=== PATIENT | female | born 1940 | race Caucasian/White ===

== ENCOUNTER → 2016-09-12 | Outpatient (CLI) | payer MEDICARE, OTHER ==
[~2016-09-12] MED LIST: ALPR-140 PO; ASPI81CH43 PO; BIOT5TAB3 PO; CHOL20007 PO; CYAN100L PO; HCTZ25T PO; MAGN400T21 PO; METO25TA5 PO; MULT1TAB95 PO; PANT40TA2 PO; POTA20TA53 PO
[2016-09-12 11:43] LABS: BUN/Creatinine Ratio 19.8; Potassium 3.6 mmol/L (3.5-5.1)
== END | disposition home or self-care (01) ==
LOC: LAB 10:43
PROVIDERS: ATTEND Internal Medicine Cardiovascular Disease
DX: R07.89 Other chest pain (principal)
CPT/HCPCS: 36415; 80048

== ENCOUNTER → 2018-03-01 | Outpatient (CLI) | payer MEDICARE ==
[2018-03-01 09:49] LABS: Basophils # (auto) 0 uL; Basophils % (auto) 0.4 % (0.0-2.0); Eosinophils # (auto) 0.4 uL; Eosinophils % (auto) 5.2 % (0.0-7.0); Hematocrit 48.5 % (36.0-46.0); Hemoglobin 15.6 g/dL (12.2-16.2); Lymphocytes # (auto) 1.8 uL; Lymphocytes % (auto) 21.4 % (10.0-50.0); Mean Corpuscular Hemoglobin 28.9 pg (28.0-32.0); Mean Corpuscular Hgb Conc. 32.1 g/dL (32.0-36.0); Monocytes # (auto) 0.8 uL; Monocytes % (auto) 9.3 % (0.0-12.0); Neutrophils # (auto) 5.4 uL; Neutrophils % (auto) 63.7 % (37.0-80.0); Nucleated Red Blood Cells % 0.1 %; Platelet Count (auto) 289 10^3/uL (140-450); Red Blood Cells 5.39 10^6/uL (4.0-5.20); Red Cell Distribution Width 13.7 % (11.8-14.3); White Blood Cell 8.5 10^3/uL (4.4-10.8)
[2018-03-01 10:04] LABS: Urine Bacteria NONE SEEN /hpf (None Seen); Urine Blood Negative /uL (Negative); Urine Mucus FEW (None Seen); Urine Specific Gravity 1.027 (1.001-1.035); Urine WBC 12 /hpf (0 - 5)
[2018-03-01 10:12] LABS: Albumin 3.3 g/dL (3.4-5.0); Calcium 9.9 mg/dL (8.5-10.1); Potassium 3.6 mmol/L (3.5-5.1)
[2018-03-01 10:20] LABS: BUN/Creatinine Ratio 22.7; Bilirubin, Total 0.4 mg/dL (0.2-1.0); Total Protein 7.3 g/dL (6.4-8.2)
== END | disposition home or self-care (01) ==
LOC: LAB 09:26
PROVIDERS: ATTEND Family Medicine
DX: I10 Essential (primary) hypertension (principal); J44.9 Chronic obstructive pulmonary disease, unspecified; E55.9 Vitamin D deficiency, unspecified; M54.5 Low back pain; E66.1 Drug-induced obesity; R73.09 Other abnormal glucose; Z79.1 Long term (current) use of non-steroidal anti-inflammatories (NSAID)
CPT/HCPCS: 80053; 80061; 81001; 82607; 83036; 84443

== ENCOUNTER 2018-08-28 00:16 | Inpatient (IN) | payer MEDICARE ==
[~2018-08-28] VITALS: Ht 167.6 cm; Wt 71.0 kg
[2018-08-28 01:19] LABS: Basophils # (auto) 0 uL; Basophils % (auto) 0.3 % (0.0-2.0); Eosinophils # (auto) 0 uL; Eosinophils % (auto) 0.2 % (0.0-7.0); Hematocrit 45.2 % (36.0-46.0); Hemoglobin 14.9 g/dL (12.2-16.2); Lymphocytes # (auto) 1.6 uL; Mean Corpuscular Volume 87.8 fL (80.0-100.0); Monocytes # (auto) 0.8 uL; Monocytes % (auto) 6.7 % (0.0-12.0); Neutrophils # (auto) 9.7 uL; Neutrophils % (auto) 79.8 % (37.0-80.0); Nucleated Red Blood Cells % 0.1 %; Platelet Count (auto) 278 10^3/uL (140-450); Red Blood Cells 5.14 10^6/uL (4.0-5.20); Red Cell Distribution Width 14.2 % (11.8-14.3); White Blood Cell 12.1 10^3/uL (4.4-10.8)
[2018-08-28 01:35] LABS: INR 0.94 (0.9-1.15); Partial Thromboplastin Time 24.7 sec (23.78-33.04); Prothrombin Time 10.1 sec (9.27-12.13)
[2018-08-28 01:38] LABS: Albumin 2.9 g/dL (3.4-5.0); Anion Gap 7 (5-15); BUN/Creatinine Ratio 28.8; Blood Urea Nitrogen 21 mg/dL (7-18); Calcium 8.8 mg/dL (8.5-10.1); Carbon Dioxide 29 mmol/L (21-32); Chloride 102 mmol/L (98-107); GFR African American 99 mL/min; GFR Non-African American 82 mL/min; Glucose 148 mg/dL (74-106); Magnesium 1.9 mg/dL (1.6-2.6); Potassium 3.4 mmol/L (3.5-5.1); Sodium 138 mmol/L (136-145)
[2018-08-28 01:43] LABS: Alanine Aminotransferase 44 U/L (13-56); Alkaline Phosphatase 104 U/L (45-117); Aspartate Aminotransferase 111 U/L (15-37); Bilirubin, Total 0.3 mg/dL (0.2-1.0); Total Protein 6.8 g/dL (6.4-8.2)
[2018-08-28] MEDS ORDERED: ONDANSETRON HCL 4 MG/2 ML VIAL ONE (03:19)
[2018-08-28] MEDS ORDERED: ALBUTEROL SULF 2.5 MG/0.5ML(0.5%) NEB SOLN NEB ONE ×2 (03:30→07:30)
[2018-08-28] MEDS ORDERED: IPRATROPIUM BROM 0.5 MG/2.5ML INH SOL NEB ONE ×2 (03:30→07:30)
[2018-08-28] MEDS ORDERED: ONDANSETRON HCL 4 MG/2 ML VIAL IV ONE (03:30)
[2018-08-28] MEDS ORDERED: LEVOFLOXACIN 500MG 100 ML IV ONE (07:15)
[2018-08-28] MEDS ORDERED: HYDROcodone-ACET 5/325MG TAB PO PRN (07:30)
[2018-08-28] MEDS ORDERED: cefTRIAXone 1GM/50ML D5W 50 ML IV ONE (07:30)
[2018-08-28] MEDS ORDERED: POTASSIUM CHL 20 Meq TABLET PO ONE (07:30)
[2018-08-28] MEDS ORDERED: ONDANSETRON HCL 4 MG/2 ML VIAL IV PRN (07:30)
[2018-08-28] MEDS ORDERED: AZITHROMYCIN 500MG/ 250ML 250 ML IV ONE (07:30)
[2018-08-28 09:23] VITALS: BP 136/71
[2018-08-28] MEDS: PANTOPRAZOLE 40 MG TAB PO SCH (09:35)
[2018-08-28] MEDS: SOTALOL HCL 80 MG TAB PO SCH ×2 (09:35→22:00)
[2018-08-28] MEDS: amLODIPine BESYLATE 5 MG TAB PO SCH (09:37)
[2018-08-28 10:00] VITALS: BP_SYST 142; BP_DIAS 62; BP_DIAS 67
[2018-08-28] MEDS: TRIAMTERENE/HCTZ 75/50MG TABLET PO SCH (10:00)
[2018-08-28] MEDS ORDERED: SOTA80TA PO (11:43)
[2018-08-28] MEDS: ALBUTEROL SULF 2.5 MG/0.5ML(0.5%) NEB SOLN NEB SCH ×3 (12:55→23:54)
[2018-08-28] MEDS: IPRATROPIUM BROM 0.5 MG/2.5ML INH SOL NEB SCH ×3 (12:55→23:54)
[2018-08-28 13:00] VITALS: BP 140/72
[2018-08-28 13:51] LABS: Urine Bacteria NONE SEEN /hpf (None Seen); Urine Blood Negative /uL (Negative); Urine Specific Gravity 1.008 (1.001-1.035); Urine WBC <1 /hpf (0 - 5)
[2018-08-28] MEDS ORDERED: DEXTROSE (50%) 50ML SYRG IV PRN (16:00)
[2018-08-28] MEDS: InsuLIN REG 1unit/0.01ml Soln (100units/ml) SC SCH ×2 (17:00→22:00)
[2018-08-28 17:06] VITALS: BP 117/52
[2018-08-28] MEDS: ACCU-CHEK COMFORT CURVE STRIP VI SCH ×2 (17:18→23:20)
[2018-08-28] MEDS: Glucerna Carbsteady SHAKE Vanilla 8oz PO SCH (18:15)
--- NOTE | 2018-08-28 19:30 | NUR ---
RECEIVED PT FROM DAY RN POC REVIEWED
[2018-08-28 22:00] VITALS: BP 123/70
[2018-08-28] MEDS: TROLAMINE SALICYLATE 10% TOP CREAM TOP SCH (23:20)
--- NOTE | 2018-08-29 01:11 | NUR ---
RESTING WITH EYES CLOSED RESP EVEN AND UNLABORED
[2018-08-29 05:00] VITALS: BP 126/64
[2018-08-29 06:14] LABS: Basophils # (auto) 0 uL; Basophils % (auto) 0.2 % (0.0-2.0); Eosinophils # (auto) 0.1 uL; Hemoglobin 14.7 g/dL (12.2-16.2); Lymphocytes # (auto) 1.8 uL; Lymphocytes % (auto) 17.9 % (10.0-50.0); Mean Corpuscular Hemoglobin 29.7 pg (28.0-32.0); Mean Corpuscular Hgb Conc. 33.5 g/dL (32.0-36.0); Mean Corpuscular Volume 88.6 fL (80.0-100.0); Monocytes # (auto) 0.8 uL; Monocytes % (auto) 7.6 % (0.0-12.0); Neutrophils # (auto) 7.4 uL; Neutrophils % (auto) 73.3 % (37.0-80.0); Platelet Count (auto) 253 10^3/uL (140-450); Red Blood Cells 4.96 10^6/uL (4.0-5.20); Red Cell Distribution Width 14.6 % (11.8-14.3); White Blood Cell 10.1 10^3/uL (4.4-10.8)
[2018-08-29 06:25] LABS: BUN/Creatinine Ratio 32.8; Calcium 9.1 mg/dL (8.5-10.1); Potassium 3.9 mmol/L (3.5-5.1)
[2018-08-29] MEDS: IPRATROPIUM BROM 0.5 MG/2.5ML INH SOL NEB SCH ×3 (06:31→19:31)
[2018-08-29] MEDS: ALBUTEROL SULF 2.5 MG/0.5ML(0.5%) NEB SOLN NEB SCH ×3 (06:31→19:31)
--- NOTE | 2018-08-29 06:52 | NUR ---
awoke resp even no c/o sob, blood sugar 96, will continue to monitor and report off to am nurse
[2018-08-29] MEDS: InsuLIN REG 1unit/0.01ml Soln (100units/ml) SC SCH ×4 (07:00→22:30)
[2018-08-29] MEDS: ACCU-CHEK COMFORT CURVE STRIP VI SCH ×4 (07:06→22:30)
[2018-08-29 09:06] VITALS: BP 140/66
[2018-08-29] MEDS: Glucerna Carbsteady SHAKE Vanilla 8oz PO SCH ×3 (09:55→17:57)
[2018-08-29] MEDS: cefTRIAXone 1GM/50ML D5W 50 ML IV SCH (09:55)
[2018-08-29] MEDS: TRIAMTERENE/HCTZ 75/50MG TABLET PO SCH (09:56)
[2018-08-29] MEDS: SOTALOL HCL 80 MG TAB PO SCH ×2 (09:56→22:44)
[2018-08-29] MEDS: AZITHROMYCIN 500MG/ 250ML 250 ML IV SCH (09:56)
[2018-08-29] MEDS: amLODIPine BESYLATE 5 MG TAB PO SCH (09:57)
[2018-08-29] MEDS: PANTOPRAZOLE 40 MG TAB PO SCH (09:57)
[2018-08-29] MEDS: TROLAMINE SALICYLATE 10% TOP CREAM TOP SCH ×2 (09:57→22:30)
[2018-08-29 11:46] VITALS: BP 132/66
[2018-08-29 16:43] VITALS: BP 112/60
[2018-08-29] MEDS: ACETAMINOPHEN 500 MG TAB PO PRN (19:47)
--- NOTE | 2018-08-29 19:50 | NUR ---
open note assumed care of pt. awake and alert at time of this nurse walking in. pt updated on plan of care. no distress noted. pt has no additional questions at this time. bed is locked, low position and 2x rails up. pt has call light within reach, encouraged to call as needed. will round q1hr and prn.
[2018-08-29 22:00] VITALS: BP 140/67
[2018-08-30] MEDS: ALBUTEROL SULF 2.5 MG/0.5ML(0.5%) NEB SOLN NEB SCH ×3 (00:42→11:45)
[2018-08-30] MEDS: IPRATROPIUM BROM 0.5 MG/2.5ML INH SOL NEB SCH ×3 (00:42→11:45)
[2018-08-30 04:53] VITALS: BP 117/67
[2018-08-30 06:26] LABS: Calcium 9.6 mg/dL (8.5-10.1); Magnesium 2.3 mg/dL (1.6-2.6); Potassium 3.9 mmol/L (3.5-5.1)
[2018-08-30 06:28] LABS: BUN/Creatinine Ratio 41.2
[2018-08-30] MEDS: ACCU-CHEK COMFORT CURVE STRIP VI SCH ×2 (06:44→11:30)
[2018-08-30] MEDS: InsuLIN REG 1unit/0.01ml Soln (100units/ml) SC SCH ×2 (06:44→11:30)
--- NOTE | 2018-08-30 07:40 | NUR ---
opening patient awake, at bedside, no distress noted at this time will f/u with morning assessment. pending is a sputum culture per noc patient has not been able to cough up any secretions for a sample
[2018-08-30] MEDS: Glucerna Carbsteady SHAKE Vanilla 8oz PO SCH ×2 (08:00→11:53)
[2018-08-30 08:42] VITALS: BP 137/74
[2018-08-30] MEDS: TRIAMTERENE/HCTZ 75/50MG TABLET PO SCH (10:00)
[2018-08-30] MEDS: AZITHROMYCIN 500MG/ 250ML 250 ML IV SCH (10:05)
[2018-08-30] MEDS: cefTRIAXone 1GM/50ML D5W 50 ML IV SCH (10:05)
[2018-08-30] MEDS: PANTOPRAZOLE 40 MG TAB PO SCH (10:07)
[2018-08-30] MEDS: SOTALOL HCL 80 MG TAB PO SCH (10:11)
[2018-08-30] MEDS: amLODIPine BESYLATE 5 MG TAB PO SCH (10:12)
[2018-08-30] MEDS: ACETAMINOPHEN 500 MG TAB PO PRN (10:13)
[2018-08-30] MEDS: TROLAMINE SALICYLATE 10% TOP CREAM TOP SCH (10:21)
--- NOTE | 2018-08-30 11:44 | NUR ---
Nutrition Assessment Notes please see attached link complete assessment Est. Needs BW [id number] kcal (23-25 kcal/kgBW), 71-78 gms pro (1.0-1.1 gms/kgBW). Will continue to monitor pertinent labs and reassess nutrient need prn Addendum: 08/30/18 at [address] Amended: Links added.
--- NOTE | 2018-08-30 12:25 | NUR ---
EDUCATION patient given incentive spirometry patient has been educated on and when to use the device and explained probably benefits of usage.
[2018-08-30 13:57] VITALS: BP 120/68
[2018-08-30] MEDS ORDERED: AMOX-263 PO (14:59)
[2018-08-30] MEDS ORDERED: AZIT500T4 PO (14:59)
[2018-08-30 15:46] VITALS: BP 137/74
--- NOTE | 2018-08-30 16:43 | NUR ---
closing Discharge instructions given as ordered. Encourage to follow up with PMD as instructed. All questions and concerns addressed. Patient verbalized understanding. Medication reconciliation form completed and copy given to patient. IV removed with catheter intact, pressure dressing applied. Telemetry unit returned to ICU. Patient taken to vehicle via wheelchair with all personal belongings, accompanied by staff and family member. No distress noted at time of departure.
== END 2018-08-30 16:35 | disposition home or self-care (01) | DRG 871 ==
LOC: EDBD 00:16 → ER 00:21 → TELE 07:31 → TELE-WESTW 10:06
PROVIDERS: ADMIT Nurse Practitioner Family; ATTEND Internal Medicine
DX: A41.9 Sepsis, unspecified organism (principal); J18.1 Lobar pneumonia, unspecified organism; J44.0 Chronic obstructive pulmonary disease with (acute) lower respiratory infection; J45.901 Unspecified asthma with (acute) exacerbation; E44.0 Moderate protein-calorie malnutrition; J44.1 Chronic obstructive pulmonary disease with (acute) exacerbation; R06.03 Acute respiratory distress; E87.6 Hypokalemia; F41.9 Anxiety disorder, unspecified; R07.89 Other chest pain; I11.0 Hypertensive heart disease with heart failure; E11.9 Type 2 diabetes mellitus without complications; I50.9 Heart failure, unspecified; Z79.82 Long term (current) use of aspirin
CPT/HCPCS: 36415; 71045; 80048; 80053; 81001; 82962; 83036; 83605; 83735; 83880; 84439; 84443; 84484; 85025; 85610; 85730; 87040; 94640; 96365; 96367; 96375; G0378; J0696; J1956; J2405

== ENCOUNTER → 2018-10-03 | Outpatient (CLI) | payer MEDICARE, OTHER ==
[~2018-10-03] MED LIST changes: +AMOX-263 PO; +AZIT500T4 PO; -CYAN100L PO; -HCTZ25T PO; -METO25TA5 PO; -PANT40TA2 PO; -POTA20TA53 PO; +SOTA80TA PO
[2018-10-03 08:59] LABS: Basophils # (auto) 0 uL; Basophils % (auto) 0.5 % (0.0-2.0); Eosinophils # (auto) 0.3 uL; Eosinophils % (auto) 3.1 % (0.0-7.0); Hematocrit 46.9 % (36.0-46.0); Hemoglobin 15.5 g/dL (12.2-16.2); Lymphocytes # (auto) 1.8 uL; Mean Corpuscular Hemoglobin 29.1 pg (28.0-32.0); Mean Corpuscular Volume 88.2 fL (80.0-100.0); Monocytes # (auto) 0.7 uL; Monocytes % (auto) 7.8 % (0.0-12.0); Neutrophils # (auto) 5.9 uL; Neutrophils % (auto) 67.6 % (37.0-80.0); Nucleated Red Blood Cells % 0.1 %; Platelet Count (auto) 296 10^3/uL (140-450); Potassium 3.8 mmol/L (3.5-5.1); Red Blood Cells 5.32 10^6/uL (4.0-5.20); Red Cell Distribution Width 14.1 % (11.8-14.3); White Blood Cell 8.7 10^3/uL (4.4-10.8)
[2018-10-03 09:09] LABS: Albumin 3.1 g/dL (3.4-5.0); BUN/Creatinine Ratio 22.2; Bilirubin, Total 0.3 mg/dL (0.2-1.0); Calcium 9.7 mg/dL (8.5-10.1); Total Protein 7.2 g/dL (6.4-8.2)
== END | disposition home or self-care (01) ==
LOC: LAB 08:01
PROVIDERS: ATTEND Family Medicine
DX: I11.0 Hypertensive heart disease with heart failure (principal); R79.89 Other specified abnormal findings of blood chemistry; I50.9 Heart failure, unspecified
CPT/HCPCS: 36415; 80053; 84439; 84443; 85025

== ENCOUNTER → 2020-10-07 | Outpatient (CLI) | payer MEDICARE, OTHER ==
[~2020-10-07] MED LIST changes: -ALPR-140 PO; +ALPR0.5T8 PO; -AZIT500T4 PO; +AZIT500T66 PO; +MAGN241.4 PO; -MAGN400T21 PO
[2020-10-07 10:10] LABS: Basophils # (auto) 0 10 ^3/uL (0-0.2); Basophils % (auto) 0.4 % (0.0-2.0); Eosinophils # (auto) 0.2 10 ^3/uL (0-0.8); Eosinophils % (auto) 1.8 % (0.0-7.0); Hematocrit 47.2 % (36.0-46.0); Hemoglobin 15.6 g/dL (12.2-16.2); Lymphocytes # (auto) 2.2 10 ^3/uL (0.4-5.4); Lymphocytes % (auto) 17.2 % (10.0-50.0); Mean Corpuscular Hemoglobin 29.2 pg (28.0-32.0); Mean Corpuscular Hgb Conc. 33.1 g/dL (32.0-36.0); Mean Corpuscular Volume 88.3 fL (80.0-100.0); Monocytes # (auto) 1.2 10 ^3/uL (0-1.3); Monocytes % (auto) 9.9 % (0.0-12.0); Neutrophils # (auto) 8.9 10 ^3/uL (1.6-8.6); Neutrophils % (auto) 70.7 % (37.0-80.0); Platelet Count (auto) 335 10^3/uL (140-450); Red Blood Cells 5.35 10^6/uL (4.0-5.20); Red Cell Distribution Width 14.1 % (11.8-14.3); White Blood Cell 12.6 10^3/uL (4.4-10.8)
[2020-10-07 10:18] LABS: Urine Bacteria FEW /hpf (None Seen); Urine Blood Negative /uL (Negative); Urine Hyaline Cast FEW /lpf (0 - 2); Urine Mucus FEW (None Seen); Urine Specific Gravity 1.026 (1.001-1.035); Urine WBC 15 /hpf (0 - 5); Urine WBC Clumps PRESENT /hpf (None Seen)
[2020-10-07 10:50] LABS: Albumin 3.1 g/dL (3.4-5.0); Calcium 10.4 mg/dL (8.5-10.1); Potassium 3.5 mmol/L (3.5-5.1)
[2020-10-07 10:54] LABS: BUN/Creatinine Ratio 28.4; Bilirubin, Total 0.4 mg/dL (0.2-1.0); Total Protein 7.3 g/dL (6.4-8.2)
== END | disposition home or self-care (01) ==
LOC: LAB 09:45
PROVIDERS: ATTEND Family Medicine
DX: E11.9 Type 2 diabetes mellitus without complications (principal); I10 Essential (primary) hypertension; K21.9 Gastro-esophageal reflux disease without esophagitis; R00.0 Tachycardia, unspecified; J44.9 Chronic obstructive pulmonary disease, unspecified; R79.89 Other specified abnormal findings of blood chemistry; Z79.82 Long term (current) use of aspirin
CPT/HCPCS: 36415; 80053; 80061; 81001; 82306; 82607; 83036; 84443; 85025